=== PATIENT | male | born 1990 | race African-American/Black ===

== ENCOUNTER 2019-12-03 14:22 | Emergency (ER) | payer OTHER ==
[2019-12-03] MEDS ORDERED: Acetaminophen 500 MG TAB ONE (14:34)
[2019-12-03] MEDS ORDERED: Ibuprofen 800 MG TAB ONE (15:35)
== END 2019-12-03 16:31 | disposition home or self-care (01) ==
LOC: ERS 14:22
DX: B34.9 Viral infection, unspecified (principal); I10 Essential (primary) hypertension
CPT/HCPCS: 87804; 99283